=== PATIENT | male | born 1955 | race Caucasian/White ===

== ENCOUNTER → 2018-09-10 | Outpatient (CLI) | payer OTHER ==
[2014-04-01 17:30] VITALS: BP 152/98
--- NOTE | 2018-09-10 08:24 | RAD ---
Three-view right rib detail series Clinical indications: Fall on ice yesterday. Right rib pain. FINDINGS: Only 11 right thoracic ribs are seen. A right cervical rib is seen. There is a deformity of the lateral aspect of the right fifth rib and the posterior aspect of the right eighth rib due to acute rib fractures. Right eighth rib fracture is mildly displaced by 4 mm. No lung consolidation or pleural effusion or pneumothorax is seen in the right side. There is a deformity of the lateral shaft of the right clavicle due to an old fracture. This could be seen on a chest x-ray dated April 01, 2014. IMPRESSION: Acute fractures of the right fifth and eighth ribs. Electronically signed by: Agustin Julian MD (09/10/2018 8:21 AM) [facility]
== END | disposition home or self-care (01) ==
LOC: PMG 07:28
PROVIDERS: ATTEND Physician Assistant
DX: S22.41XA Multiple fractures of ribs, right side, initial encounter for closed fracture (principal); X58.XXXA Exposure to other specified factors, initial encounter; Y93.89 Activity, other specified; Y92.89 Other specified places as the place of occurrence of the external cause; Y99.8 Other external cause status
CPT/HCPCS: 71100

== ENCOUNTER → 2019-04-23 | Outpatient (CLI) | payer OTHER ==
[2014-04-01 17:30] VITALS: BP 152/98
--- NOTE | 2019-04-23 08:20 | RAD ---
EXAM: Supine AP view of the abdomen DATE: 04/23/2019 12:00 AM INDICATION: Right-sided abdominal pain COMPARISON: No Prior FINDINGS: No abnormal small or large bowel dilatation. Moderate to large volume colonic stool content. No abnormal soft tissue mass effect. No suspicious calcifications are seen. Evaluation for free intraperitoneal gas is limited on this supine exam. Vascular calcifications are noted. IMPRESSION: 1. No evidence for bowel obstruction. 2. Moderate to large joint colonic stool content is seen. Electronically signed by: Sai Conte MD (04/23/2019 8:17 AM) [facility]
== END | disposition home or self-care (01) ==
LOC: RAD 07:52
PROVIDERS: ATTEND Physician Assistant Medical
DX: R10.9 Unspecified abdominal pain (principal)
CPT/HCPCS: 74019

== ENCOUNTER → 2020-03-14 | Outpatient (CLI) | payer OTHER ==
[2014-04-01 17:30] VITALS: BP 152/98
--- NOTE | 2020-03-14 16:22 | CARD ---
MR#: [id number] Date of Study: 03/14/2020 Ordering Physician: GAYLA VANESSA, Referring Physician: GAYLA AVNESSA, Tech: Stephanie Cortez ELVIN APPROVED REPORT EXAM: Two-dimensional and M-mode echocardiogram with Doppler and color Doppler. Other Information Quality : Good INDICATION Hypertension/HCVD 2D DIMENSIONS RVDd3.5 (2.9-3.5cm)Left Atrium(2D)3.7 (1.6-4.0cm) IVSd0.9 (0.7-1.1cm)Aortic Root(2D)3.6 (2.0-3.7cm) LVDd4.4 (3.9-5.9cm)LVOT Diameter2.3 (1.8-2.4cm) PWd0.9 (0.7-1.1cm)LVDs3.4 (2.5-4.0cm) FS (%) 24.4 %SV43.6 ml Aortic Valve AoV Peak Matthew.88.7cm/sAoV VTI17.9cm AO Peak GR.3.1mmHgLVOT Peak Matthew.85.5cm/s LVOT VTI 17.61cmAO Mean GR.2mmHg [place] (VMAX)3.32oi9HOD (VTI)3.96cm2 Mitral Valve MV E Rcjjzxfo10.1cm/sMV DECEL CCTK922lb MV A Xodmmwea36.5cm/sE/A Ratio0.7 Pulmonary Vein S1 Lgkfssbj45.8cm/sD2 Eeinnbrs45.6cm/s LEFT VENTRICLE The left ventricle is normal size. There is normal left ventricular wall thickness. Left ventricle sy stolic function is normal. The Ejection Fraction is 50-55%. Septal motion consistent with conduction abnormality. Transmitral Doppler flow pattern is Grade I-abnormal relaxation pattern. RIGHT VENTRICLE The right ventricle is normal size. The right ventricular systolic function is normal. ATRIA The left atrium size is normal. The right atrium size is normal. The interatrial septum is intact wit h no evidence for an atrial septal defect or patent foramen ovale as noted on 2-D or Doppler imaging. AORTIC VALVE The aortic valve is normal in structure and function. Doppler and Color Flow revealed no significant aortic regurgitation. There is no significant aortic valvular stenosis. MITRAL VALVE The mitral valve is calcified but opens well. There is no evidence of mitral valve prolapse. There is no mitral valve stenosis. Doppler and Color Flow revealed no mitral valve regurgitation noted. TRICUSPID VALVE The tricuspid valve is normal in structure and function. Doppler and Color Flow revealed no tricuspid valve regurgitation noted. There is no tricuspid valve stenosis. PULMONIC VALVE The pulmonic valve is not well visualized. Doppler and Color Flow revealed no pulmonic valvular regur gitation. There is no pulmonic valvular stenosis. GREAT VESSELS The aortic root is normal in size. The ascending aorta is mildly dilated at 4.0 cm. The IVC is normal in size and collapses >50% with inspiration. PERICARDIAL EFFUSION There is no evidence of significant pericardial effusion. Critical Notification Critical Value: No <Conclusion> The left ventricle is normal size. Left ventricle systolic function is normal. The Ejection Fraction is 50-55%. Septal motion consistent with conduction abnormality. Doppler and Color Flow revealed no significant aortic regurgitation. There is no significant aortic valvular stenosis. Doppler and Color Flow revealed no mitral valve regurgitation noted. Doppler and Color Flow revealed no tricuspid valve regurgitation noted. The ascending aorta is mildly dilated at 4.0 cm. Signed by : Tai Rai MD Electronically Approved : 03/14/2020 16:21:15
== END | disposition home or self-care (01) ==
LOC: ECHO 07:42
PROVIDERS: ATTEND Internal Medicine Cardiovascular Disease
DX: I07.1 Rheumatic tricuspid insufficiency (principal); I10 Essential (primary) hypertension
CPT/HCPCS: 93306

== ENCOUNTER → 2020-05-04 | Outpatient (CLI) | payer OTHER ==
[2014-04-01 17:30] VITALS: BP 152/98
--- NOTE | 2020-05-04 10:34 | RAD ---
CT CHEST WO CONTRAST INDICATION: lung nodule COMPARISON STUDY: CT calcium score 05/15/2018. TECHNIQUE: Unenhanced axial images were obtained through the lungs and upper abdomen. Coronal and sagittal multiplanar reconstructions were also obtained. PQRS compliance statement: One or more of the following individualized dose reduction techniques were utilized for this examination: 1. Automated exposure control 2. Adjustment of the mA and/or kV according to patient size 3. Use of iterative reconstruction technique FINDINGS: Lungs and Airways: No pulmonary mass or consolidation. Right lower lobe 5 mm nodule is stable from exam of 05/15/2018. Calcified pulmonary granulomas. Normal central airways. Pleura: The pleural spaces are normal. Heart and Mediastinum: The visualized thyroid gland is normal in size and attenuation. No axillary or supraclavicular lymphadenopathy. No mediastinal, hilar or retrocrural lymphadenopathy. Normal cardiac size. No pericardial effusion. Coronary artery atherosclerotic disease. Ectatic ascending thoracic aorta measures 4.1 cm the level of the right pulmonary artery. Abdomen: The visualized abdominal organs demonstrate no abnormality. Bones and Soft Tissues: Degenerative changes spine. IMPRESSION: 1. Right lower lobe 5 mm nodule demonstrates nearly two-year stability and is presumed benign. 2. No pulmonary mass. No thoracic lymphadenopathy. 3. Coronary artery atherosclerotic disease. 4. Ectatic ascending thoracic aorta measures 4.1 cm in diameter. Electronically signed by: Christiano Carnes MD (05/04/2020 10:31 AM) [id number]
--- NOTE | 2020-05-04 14:56 | RAD ---
MR#: [id number] Date of Study: 05/04/2020 Ordering Physician: GAYLA VANESSA, Referring Physician: ALISHA GARCIA Tech: RT Nick (R) (N) APPROVED REPORT Test Type: Exercise Stress Nurse/Tech: Tati/Ernesto Test Indications: Chest discomfort Cardiac History: No known cardiac Medications: See EHR Resting Heart Rate: 63 bpm Resting Blood Pressure: 135/83mmHg Pretest Chest Pain: No chest pain POST EXERCISE Reason for Termination: Infusion complete Target HR: Yes Max HR: 142 bpm 100% of Maximum Predicted HR: 134 bpm Exercise duration: 4 min:sec, 2 Stage Exercise capacity: 4.6METs Max Blood Pressure: 157/73mmHg Blood Pressure response to exercise: Normal blood pressure response during stress. Heart Rate response to exercise: Normal Chest Pain: No. Arrhythmia: No. ST Change: No. INTERPRETATION Stress EKG Conclusion: No evidence of stress induced EKG changes. Imaging Protocol IMAGE PROTOCOL: Rest TI-201/Stress Tc-99m Rest: Stress: Viability: Radiopharm.Tc99m IaagunmrhOm90a Sestamibi Ihst36lZl 33mCi Duration 15min. 15min. Img Date 05/04/2020 05/04/2020 Inj-Img Bouf80zba. 60min. Rest Admin Site:IV - Right AntecubitalAdministrator: RT Nick (R)(N) Stress Admin Site: IV - Right AntecubitalAdministrator: RT Nick (R)(N) STRESS DATA End Diast. Vol.84.0mlAv. Heart Rate66.0bpm End Syst. Vol.31.0mlCO Index BSA0.0L/min Myocardial Rcey976.0gEject. Sniprbaq00.0% Stress Rates Pk. Fill Rate2.48EDV/secLVtime Pk. Fill 131.87msec Pk. Empty Rate3.78ESV/secLVtime Pk. Uzdjw498.78msec 07/16 Pk. Fill1.55EDV/sec Stress Scores Regional WT0.00Summed WT2.00 Regional WM0.00Summed WM0.00 The rest and stress images show normal perfusion, normal contraction and thickening. LV Perf. Quant 17 Seg. SSS0.00 17 Seg. SRS1.00 17 Seg. SDS0.00 Stress Defect Extent (% LAD)0.00Rest Defect Extent (% LAD)0.00Rev. Defect Extent (% LAD)0.00 Stress Defect Extent (% LCX) 0.00Rest Defect Extent (% LCX)5.00Rev. Defect Extent (% LCX)0.00 Stress Defect Extent (% RCA)0.00Rest Defect Extent (% RCA)0.00Rev. Defect Extent (% RCA)0.00 Stress Defect Extent (% TISH)0.00Rest Defect Extent (% TISH)0.90Rev. Defect Extent (% TISH)0.00 Other Information Quality:Average Risk Assessment: Low Risk Conclusion 1. No evidence of stress induced EKG changes. 2. Poor exercise capacity at 4.6 Mets. 3. Normal perfusion at stress/rest. 4. Normal EF at > 55% 5. Low risk study overall. Signed by : Gayla Vanessa, Electronically Approved : 05/04/2020 14:56:23
== END ==
LOC: NM 08:20
PROVIDERS: ATTEND Internal Medicine Cardiovascular Disease
DX: R91.1 Solitary pulmonary nodule (principal); R07.89 Other chest pain; I25.10 Atherosclerotic heart disease of native coronary artery without angina pectoris; I70.0 Atherosclerosis of aorta; J84.10 Pulmonary fibrosis, unspecified
CPT/HCPCS: 71250; 78452; 93017; 96376; A9500

== ENCOUNTER → 2021-03-01 | Outpatient (CLI) | payer OTHER ==
[2014-04-01 17:30] VITALS: BP 152/98
--- NOTE | 2021-03-01 14:57 | RAD ---
EXAM: ULTRASOUND ABDOMEN LIMITED CLINICAL HISTORY: RUQ ABDOMINAL PAIN COMPARISON: None available. TECHNIQUE: Limited ultrasound examination of the right upper quadrant of the abdomen was performed. FINDINGS: The pancreas is mostly obscured by overlying bowel gas.. Liver: 15.3 cm in length. The hepatic margin is smooth and the hepatic echogenicity is normal. The re are no focal liver lesions. Flow seen within the portal veins. Biliary: No cholelithiasis. No wall thickening or pericholecystic fluid. There is no pain with dire ct transducer pressure over the gallbladder. Common bile duct measures 0.2 cm. Right Kidney: 10.3 cm in bipolar length. Mild right renal cortical thinning. No focal renal lesion, s hadowing renal calculus or hydronephrosis. Visualized portions of the abdominal aorta and inferior vena cava are unremarkable, although the yan rity is obscured by overlying bowel gas. There is no free fluid in the subhepatic space. IMPRESSION: 1. Mild right renal cortical thinning, likely chronic medical renal disease. 2. Grossly normal sonographic appearance of the gallbladder. Electronically signed by: Sai Conte MD (03/01/2021 2:55 PM) [id number]
== END ==
LOC: US 08:25
PROVIDERS: ATTEND Physician Assistant Medical
DX: N28.89 Other specified disorders of kidney and ureter (principal)
CPT/HCPCS: 76705